=== PATIENT | male | born 1990 | race Caucasian/White ===

== ENCOUNTER 2021-03-07 05:46 | Emergency (ER) | payer SELFPAY ==
[~2021-03-07] VITALS: Ht 180.3 cm; Wt 99.8 kg
[2021-03-07 05:47] VITALS: BP 113/73
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
[2021-03-07 06:10] VITALS: BP 115/74
--- NOTE | 2021-03-07 06:10 | NUR ---
PATIENT BIB [facility] DEPT. PATIENT EXAMINED BY DR. BOLANOS. PATIENT MEDICALLY CLEARED AND RELEASED IN CUSTODY IN STABLE CONDITION. ORIGINAL PRE-BOOK FORM GIVEN TO OFFICER #[id number].
== END 2021-03-07 06:10 ==
LOC: MED 05:46
DX: Z02.89 Encounter for other administrative examinations (principal); V89.2XXA Person injured in unspecified motor-vehicle accident, traffic, initial encounter; Y93.89 Activity, other specified; Y92.89 Other specified places as the place of occurrence of the external cause; Y99.8 Other external cause status
CPT/HCPCS: 99283